=== PATIENT | female | born 1945 | race Caucasian/White ===

== ENCOUNTER 2018-02-23 07:46 | Outpatient (CLI) | payer OTHER | END 2018-02-23 07:54 | disposition home or self-care (01) | LOC: TOM 07:46 | DX: K56.600 Partial intestinal obstruction, unspecified as to cause (principal); K56.50 Intestinal adhesions [bands], unspecified as to partial versus complete obstruction; R19.5 Other fecal abnormalities; K59.09 Other constipation ==

== ENCOUNTER 2024-07-03 18:00 | Emergency (ER) | payer OTHER ==
[~2024-07-03] VITALS: Ht 160 cm; Wt 64.4 kg
[2024-07-03] MEDS ORDERED: TOPROL XL25 M1 (18:09)
[2024-07-03] MEDS ORDERED: NORVASC5 MG PO (18:10)
[2024-07-03] MEDS ORDERED: ROSUVASTATIN CA10 MG PO (18:10)
[2024-07-03] MEDS ORDERED: PLAVIX75 MG (18:10)
[2024-07-03] MEDS ORDERED: ORPHENADRINE CITRATE 30 MG/ML AMPUL ONE (20:38)
[2024-07-03] MEDS ORDERED: KETOROLAC TROMETHAMINE 60 MG VIAL IM ONE ×3 (20:38→20:45)
[2024-07-03] MEDS ORDERED: DEXAMETHASONE SODIUM PHOSPHATE 4 MG/ML VIAL ONE (20:39)
[2024-07-03] MEDS ORDERED: DEXAMETHASONE SODIUM PHOSPHATE 4 MG/ML VIAL IM ONE (20:45)
[2024-07-03] MEDS ORDERED: ORPHENADRINE CITRATE 30 MG/ML AMPUL IM ONE (20:45)
[2024-07-03] MEDS ORDERED: BACLOFEN10 MG PO (23:08)
[2024-07-03] MEDS ORDERED: DICLOFENAC SODI75 MG PO (23:08)
== END 2024-07-04 | disposition home or self-care (01) ==
LOC: ER 18:03
DX: M62.830 Muscle spasm of back (principal); Z88.8 Allergy status to other drugs, medicaments and biological substances; Z95.1 Presence of aortocoronary bypass graft; I11.9 Hypertensive heart disease without heart failure
CPT/HCPCS: 96372; 99282; J1100; J1885; J2360